=== PATIENT | male | born 1940 | race Caucasian/White ===

== ENCOUNTER 2025-04-29 12:55 | Outpatient (CLI) | payer MEDICARE | END 2025-04-29 12:56 | disposition home or self-care (01) | LOC: SCSMRI 12:55 | PROVIDERS: ATTEND Orthopaedic Surgery | DX: M48.062 Spinal stenosis, lumbar region with neurogenic claudication (principal); M47.26 Other spondylosis with radiculopathy, lumbar region; M47.27 Other spondylosis with radiculopathy, lumbosacral region; M43.16 Spondylolisthesis, lumbar region; M51.16 Intervertebral disc disorders with radiculopathy, lumbar region; M51.17 Intervertebral disc disorders with radiculopathy, lumbosacral region; M48.07 Spinal stenosis, lumbosacral region | CPT/HCPCS: 72148 ==